=== PATIENT | male | born 1940 | race African-American/Black ===

== ENCOUNTER 2017-02-28 00:25 | Emergency (ER) | payer OTHER ==
[~2017-02-28] VITALS: Ht 175.3 cm; Wt 104.3 kg
[~2017-02-28 00:25] MED LIST: 2 BP MEDS; ALPR0.5T6 PO; AMLO10TA2 PO; CIME800T PO; HYDR25TA9 PO; IBUP-1060 PO; NERVE PILL; OMEP20CA5 PO
[2017-02-28 00:43] VITALS: BP 150/70
[2017-02-28] MEDS ORDERED: SULF1TAB24 PO (00:58)
[2017-02-28] MEDS ORDERED: FLUT9.9S NS (00:58)
--- NOTE | 2017-02-28 00:58 | PHYS DOC ---
Past Medical History Past Medical History: Hypertension Past Surgical History: No Surgical History Alcohol Use: None Drug Use: None Adult General Chief Complaint Chief Complaint: Congestion HPI HPI Patient is a 76 year old presents to the emergency department for a history of sinus congestion. His daughter reports he is running a low-grade fever although she is nonmeasured 1. Patient states he coughs when he lays down at night. He denies headache but does complain a mild facial discomfort. Review of Systems Review of Systems Constitutional: Fever [] Eyes: Denies change in visual acuity, redness, or eye pain [] HENT: Nasal congestion, facial pain Respiratory: Cough without shortness of breath or wheezing Cardiovascular: No additional information not addressed in HPI [] GI: Denies abdominal pain, nausea, vomiting, bloody stools or diarrhea [] : Denies dysuria or hematuria [] Musculoskeletal: Denies back pain or joint pain [] Integument: Denies rash or skin lesions [] Neurologic: Denies headache, focal weakness or sensory changes [] Endocrine: Denies polyuria or polydipsia [] Allergies Allergies Allergies Coded Allergies Type Severity Reaction Last Updated Verified No Known Drug Allergies 11/03/14 No Physical Exam Physical Exam Constitutional: Well developed, well nourished, no acute distress, non-toxic appearance. [] HENT: Bilateral tympanic membranes pearly, purulent discharge from bilateral nares. Mild maxillary sinus tenderness. Eyes: PERRLA, EOMI, conjunctiva normal, no discharge. [] Neck: Normal range of motion, no tenderness, supple, no stridor. [] Cardiovascular:Heart rate regular rhythm, no murmur [] Lungs & Thorax: Bilateral breath sounds clear to auscultation [] Skin: Warm, dry, no erythema, no rash. [] Neurologic: Alert and oriented X 3, normal motor function, normal sensory function, no focal deficits noted. [] Current Patient Data Vital Signs Vital Signs Date Time Temp Pulse Resp B/P (MAP) Pulse Ox O2 Delivery O2 Flow Rate FiO2 02/28/17 00:43 100.9 118 22 94 Room Air 100.9 EKG EKG [] Radiology/Procedures Radiology/Procedures [] Course & Med Decision Making Course & Med Decision Making Pertinent Labs and Imaging studies reviewed. (See chart for details) [] Dragon Disclaimer Dragon Disclaimer This electronic medical record was generated, in whole or in part, using a voice recognition dictation system. Departure Departure Impression: Primary Impression: Sinusitis Disposition: 01 HOME, SELF-CARE Condition: STABLE Referrals: ALEXANDRIA HUYNH (PCP) Patient Instructions: Sinusitis Scripts Fluticasone Propionate (Flonase Allergy Relief) 9.9 Ml Johnston.susp 2 SPRAYS NS DAILY for 10 Days, #1 BOTTLE Prov: KISHA DEJESUS APRN 02/28/17 Sulfamethoxazole/Trimethoprim (BACTRIM DS TABLET) 1 Each Tablet 1 TAB PO BID, #20 TAB Prov: KISHA DEJESUS APRN 02/28/17 KISHA DEJESUS APRN February 28, 2017 00:58
[2017-02-28] MEDS ORDERED: diphenhydrAMINE HCL 25 MG CAPSULE PO ONE (01:30)
== END 2017-02-28 01:08 | disposition home or self-care (01) ==
LOC: ER 00:25
DX: J32.9 Chronic sinusitis, unspecified (principal); I10 Essential (primary) hypertension
CPT/HCPCS: 99283; Q0163

== ENCOUNTER 2017-12-15 21:55 | Emergency (ER) | payer BC, OTHER ==
[2017-12-15 22:52] LABS: INFLUENZA A PATIENT NEGATIVE (NEGATIVE); INFLUENZA B PATIENT NEGATIVE (NEGATIVE); OBC FLU VALID
[2017-12-15 23:10] LABS: ADD MAN DIFF? NO
[2017-12-15] MEDS: IV NORMAL SALINE 500ML BAG 500 ML IV (23:11)
[2017-12-15 23:15] LABS: BASO % 1 % (0-3); EOS % 1 % (0-3); HEMATOCRIT 39.1 % (39.0-53.0); HEMOGLOBIN 13.5 g/dL (13.0-17.5); LYMPH # 2.1 x10^3/uL (1.0-4.8); LYMPH % 48 % (24-48); MEAN CORPUSCULAR HEMOGLOBIN 30 pg (25-35); MEAN CORPUSCULAR HGB CONC 35 g/dL (31-37); MEAN CORPUSCULAR VOLUME 88 fL (79-100); MONO # 0.6 x10^3/uL (0.0-1.1); MONO % 14 % (0-9); NEUT # 1.6 x10^3uL (1.8-7.7); NEUT % 37 % (31-73); PLATELET COUNT 122 x10^3/uL (140-400); RED BLOOD COUNT 4.46 x10^6/uL (4.30-5.70); RED CELL DISTRIBUTION WIDTH 13.7 % (11.5-14.5); WHITE BLOOD COUNT 4.3 x10^3/uL (4.0-11.0)
[2017-12-15 23:29] LABS: ALBUMIN 3.5 g/dL (3.4-5.0); ALK PHOS 55 U/L (46-116); ALT (SGPT) 19 U/L (16-63); ANION GAP 9 (6-14); AST (SGOT) 26 U/L (15-37); BLOOD UREA NITROGEN 19 mg/dL (8-26); CALCIUM 8.2 mg/dL (8.5-10.1); CARBON DIOXIDE 31 mmol/L (21-32); CHLORIDE 99 mmol/L (98-107); CREATININE 1.4 mg/dL (0.7-1.3); DIRECT BILIRUBIN 0.3 mg/dL (0.0-0.2); GFR 59.6; GLUCOSE 121 mg/dL (70-99); LIPASE 140 U/L (73-393); SODIUM 139 mmol/L (136-145); TOTAL PROTEIN 6.4 g/dL (6.4-8.2)
[2017-12-15 23:38] LABS: BILIRUBIN,URINE SMALL (NEG); CLARITY,URINE TURBID; COLOR,URINE AMBER; GLUCOSE,URINE NEGATIVE (NEG); NITRITE,URINE NEGATIVE (NEG); PROTEIN,URINE NEGATIVE (NEG-TRACE)
[2017-12-15 23:51] LABS: BACTERIA,URINE 0 /HPF (0-FEW); RBC,URINE 0 /HPF (0-2); SQUAMOUS EPITHELIAL CELL,UR FEW /LPF
[2017-12-15 23:52] LABS: HYALINE CASTS, URINE FEW /HPF
== END 2017-12-16 00:24 | disposition home or self-care (01) ==
LOC: ER 12-16 00:24
DX: R51 Headache (principal); R05 Cough; M79.1 Myalgia; E78.00 Pure hypercholesterolemia, unspecified; I10 Essential (primary) hypertension
CPT/HCPCS: 36415; 71045; 80048; 80076; 81001; 83690; 85025; 87086; 87804; 87804-59; 96360; 99285-25; J7040

== ENCOUNTER → 2018-03-13 | Outpatient (CLI) | payer BC | END | disposition home or self-care (01) | LOC: CT 13:58 | DX: I71.2 Thoracic aortic aneurysm, without rupture (principal); J98.11 Atelectasis; I25.10 Atherosclerotic heart disease of native coronary artery without angina pectoris; K80.20 Calculus of gallbladder without cholecystitis without obstruction | CPT/HCPCS: 71250 ==

== ENCOUNTER → 2018-10-30 | Outpatient (CLI) | payer BC ==
[2017-12-24 07:00] VITALS: BP 147/73
[~2018-10-30] MED LIST changes: +ALBU2.5V8 INH; -AMLO10TA2 PO; +AMLO10TA8 PO; +AMOX1TAB61 PO; +AZIT250T6 PO; +FLUT9.9S NS; +HYDR-2145 PO; -HYDR25TA9 PO; +POTA10TA12 PO; +PRED-220 PO; +SULF1TAB24 PO
--- NOTE | 2018-10-30 16:32 | RAD ---
CT of the chest without contrast 10/30/2018 INDICATION: Cavitary lesion, right lower lobe. COMPARISON STUDY: CT chest March 13, 2018. TECHNIQUE: Multidetector CT imaging of the chest was performed without the administration of IV contrast. FINDINGS: Redemonstration of the thin-walled cavitary lesion in the superior right lower lobe. Allowing differences in slice selection no significant change in size or appearance is appreciated. No pneumothorax or pleural effusion is identified. No new focal consolidative infiltrate is seen. Scattered areas of scarring are similar to prior study. Small subpleural blebs are unchanged. Stable cardiomegaly is noted. Scattered small mediastinal lymph nodes appear similar to comparison study. Dilatation of the ascending thoracic aorta 4.1 cm is grossly stable. Cardiomegaly is similar. Limited visualization of the upper abdomen demonstrates no acute change from prior study. Bilateral gynecomastia noted. No acute osseous abnormality is seen. IMPRESSION: 1. Stable CT appearance of the chest 2. Thin-walled cavitary lesion superior aspect of the right lower lobe is grossly stable. 3. Stable dilatation of the ascending thoracic aorta 4.[address] DOSING PQRS STATEMENT: One or more of the following individualized dose reduction techniques were utilized for this examination: 1. Automated exposure control 2. Adjustment of the mA and/or kV according to patient size 3. Use of iterative reconstruction technique Electronically signed by: Maximus Davis MD (10/30/2018 4:28 PM) [id number]
== END | disposition home or self-care (01) ==
LOC: CT 11:00
PROVIDERS: ATTEND Internal Medicine Pulmonary Disease
DX: R91.1 Solitary pulmonary nodule (principal); R59.0 Localized enlarged lymph nodes; I51.7 Cardiomegaly; N62 Hypertrophy of breast
CPT/HCPCS: 71250

== ENCOUNTER → 2019-06-03 | Day surgery (SDC) | payer BC ==
[~2019-06-03] MED LIST changes: +ATOR40TA59 PO; +HYDROmorphone 2 MG/ML VIAL IV PRN; +IV RINGERS,LACTATED 1000ML 1,000 ML IV SCH; +LIDOCAINE 1% PF 2 ML VIAL. ID PRN; +METO-239 PO; +MORPHINE SULFATE 2 MG/ML VIAL. IV PRN; +ONDANSETRON PF 4 MG/2 ML VIAL. IV PRN; +PANT40TA77 PO; +PROCHLORPERAZINE 10 MG/2 ML VIAL. IV PRN; +PROPOFOL 20 ML IV ONE; +fentaNYL PF VIAL 100 MCG/2 ML VIAL IV PRN
[2019-06-03 12:50] VITALS: BP 121/70
--- NOTE | 2019-06-04 11:06 | CONS ---
DATE OF CONSULTATION: 06/03/2019 GI CONSULTATION REFERRING PHYSICIAN: Dany Oliva MD REASON FOR CONSULTATION: Family history of colon cancer. HISTORY OF PRESENT ILLNESS: A 78-year-old -[place] male with past medical history significant for hypertension, hyperlipidemia, is seen for colonoscopy. He states he had a colonoscopy over 5 years ago, which at that time was nonrevealing. Denies any change in bowel habits at this time without any diarrhea or constipation. Family history is significant for the colon cancer with brother and father per the patient. Weight and appetite are stable. There has been no bleeding. He is otherwise without additional complaints. PAST MEDICAL HISTORY: Hypertension, hyperlipidemia. ALLERGIES: None. MEDICATIONS: Include albuterol, alprazolam, amlodipine, atorvastatin, hydrochlorothiazide, metoprolol, and pantoprazole. FAMILY AND SOCIAL HISTORY: Colon cancer with brother and father. He is a nondrinker, nonsmoker at this time. Former drinker and smoker in the past. PAST SURGICAL HISTORY: Noncontributory. REVIEW OF SYSTEMS: Per records. PHYSICAL EXAMINATION: GENERAL: Reveals a well-nourished, well-developed male, who is alert, cooperative, in no acute distress. VITAL SIGNS: Temperature 97.4, pulse 82, respirations 20. HEENT: Normocephalic, atraumatic head. Pupils and extraocular muscles are not tested. Sclerae anicteric. NECK: Supple. LUNGS: Clear. CARDIOVASCULAR: Reveals an S1, S2 without S3, S4 or appreciable murmur. ABDOMEN: Reveals soft abdomen, normal bowel sounds, without appreciable hepatosplenomegaly. EXTREMITIES: Reveals no cyanosis, clubbing or edema. IMPRESSION: Colorectal screening is warranted at this time. Risks and benefits of procedure including risk of hemorrhage and perforation requiring operation have been discussed. The patient is willing to proceed at this time. PARISH ASCENCIO MD DR: MANNY/kimberly JOB#: [id number] / [id number]
== END ==
LOC: ENDOS 10:31
PROVIDERS: ATTEND Internal Medicine Gastroenterology
DX: Z12.11 Encounter for screening for malignant neoplasm of colon (principal); K62.1 Rectal polyp; K57.30 Diverticulosis of large intestine without perforation or abscess without bleeding; K64.0 First degree hemorrhoids; I10 Essential (primary) hypertension; E78.5 Hyperlipidemia, unspecified; Z80.0 Family history of malignant neoplasm of digestive organs
CPT/HCPCS: 45380; J2704; 88305